=== PATIENT | female | born 1980 | race Caucasian/White ===

== ENCOUNTER 2018-02-14 21:04 | Emergency (ER) | payer MEDICAID ==
[~2018-02-14] VITALS: Ht 162.6 cm; Wt 99.8 kg
[2018-02-14 21:10] VITALS: BP_SYST 125
[2018-02-14 21:44] VITALS: BP_SYST 122
== END 2018-02-14 21:40 | disposition home or self-care (01) ==
LOC: SED 21:04
DX: N99.821 Postprocedural hemorrhage of a genitourinary system organ or structure following other procedure (principal); N39.0 Urinary tract infection, site not specified; Z90.710 Acquired absence of both cervix and uterus; Z91.041 Radiographic dye allergy status; Z88.2 Allergy status to sulfonamides; Z86.2 Personal history of diseases of the blood and blood-forming organs and certain disorders involving the immune mechanism
CPT/HCPCS: 99283

== ENCOUNTER 2018-06-24 19:53 | Emergency (ER) | payer MEDICAID, OTHER ==
[~2018-06-24] VITALS: Ht 162.6 cm; Wt 90.7 kg
[2018-06-24 20:08] VITALS: BP_SYST 163
--- NOTE | 2018-06-24 20:10 | NUR ---
Patient to ER bed 5 for evaluation.
--- NOTE | 2018-06-24 20:15 | NUR ---
Patient to ER via triage for evaluation of anxiety since 1700 today, patient is awake, alert and oriented in no acute distress, vital signs stable, respirations even and unlabored, skin warm and dry to touch. Family at bedside, patient denies pain/discomfort at present. Awaiting evaluation by ER MD, will continue to observe and assess.
[2018-06-24] MEDS ORDERED: RISP2TAB5 PO (20:18)
[2018-06-24] MEDS ORDERED: DIVA500T PO (20:19)
--- NOTE | 2018-06-24 20:20 | NUR ---
ER at bedside examining patient.
[2018-06-24] MEDS ORDERED: NACL 0.9% 1,000 ML IV ONE (20:30)
[2018-06-24] MEDS ORDERED: ONDANSETRON HCL 4 MG/2 ML VIAL IVP ONE (20:30)
[2018-06-24] MEDS ORDERED: LORazepam 2 MG/ML VIAL (FOR ER USE) IVP ONE (20:30)
--- NOTE | 2018-06-24 20:50 | NUR ---
Patient resting quietly in no acute distress, vital signs stable, respirations even and unlabored. IV fluids infusing without difficulty, patient up to bathroom to provide a urine sample which was obtained and sent to lab.
[2018-06-24 21:06] LABS: BASOPHILS # (AUTO) 0.1 K/uL (0.0-0.2); EOSINOPHILS # (AUTO) 0.1 K/uL (0.0-0.4); EOSINOPHILS % (AUTO) 1.5 % (0.0-4.0); HEMATOCRIT 38.3 % (36-48); HEMOGLOBIN 12.2 g/dL (12.0-16.0); LYMPHOCYTES # (AUTO) 1.8 K/uL (1.0-5.5); LYMPHOCYTES % (AUTO) 25.2 % (20.5-51.5); MEAN CORPUSCULAR HEMOGLOBIN 25 pg (27-31); MEAN CORPUSCULAR HGB CONC 32 % (32-36); MEAN CORPUSCULAR VOLUME 77 fL (79.0-98.0); MONOCYTES # (AUTO) 0.4 K/uL (0.0-1.0); NEUTROPHILS # (AUTO) 4.7 K/uL (1.8-7.7); NEUTROPHILS % (AUTO) 67.3 % (40.0-70.0); PLATELET COUNT (AUTO) 201 K/uL (130-430); RED CELL DISTRIBUTION WIDTH 16.9 % (9.0-15.0); WHITE BLOOD COUNT (AUTO) 7.1 K/uL (4.8-10.8)
[2018-06-24 21:12] LABS: CALCIUM 8.7 mg/dL (8.4-11.0); CREATININE 0.56 mg/dL (0.55-1.30); POTASSIUM 3.4 mmol/L (3.5-5.1)
[2018-06-24 21:13] LABS: BILIRUBIN,URINE NEGATIVE (NEGATIVE); BLOOD, URINE NEGATIVE (NEGATIVE); CLARITY/URINE SL HAZY (CLEAR); COLOR,URINE YELLOW (YELLOW); GLUCOSE,URINE NEGATIVE (NEGATIVE); KETONES,URINE TRACE (NEGATIVE); LEUKOCYTE ESTERASE ,URINE 1+ (NEGATIVE); NITRITE, URINE NEGATIVE (NEGATIVE); PH,URINE 6.5 (5.0-8.0); PROTEIN URINE NEGATIVE (NEGATIVE); UROBILINOGEN,URINE 0.2 (0.2-1.0)
[2018-06-24 21:17] LABS: ALBUMIN 3.4 g/dL (3.4-4.8); TOTAL BILIRUBIN 0.1 mg/dL (0.0-1.0)
[2018-06-24 21:28] LABS: BARBITURATE, URINE NEGATIVE (NEG <=200); BENZODIAZEPINE, URINE NEGATIVE (NEG <=150); CANNABINOID, URINE NEGATIVE (NEG <=50); COCAINE, URINE NEGATIVE (NEG <=150); METHAMPHETAMINES SCREEN,URINE NEGATIVE (NEG <=500); OPIATE, URINE NEGATIVE (NEG <=100); PHENCYCLIDINE SCREEN,URINE NEGATIVE (NEG <=25); UR TRICYCLIC ANTIDEPRESSANTS NEGATIVE (NEG <=300); URINE AMPHETAMINE NEGATIVE (NEG <=500); URINE METHADONE NEGATIVE (NEG <=200); URINE OXYCODONE SCREEN NEGATIVE (NEG <=100); URINE PROPOXYPHENE SCREEN NEGATIVE (NEG <=300)
[2018-06-24 21:29] LABS: BACTERIA,URINE FEW /HPF (None Seen); RBC,URINE 0-3 /HPF (0-3)
[2018-06-24 21:30] LABS: MUCUS,URINE None Seen /LPF (None Seen)
--- NOTE | 2018-06-24 21:45 | NUR ---
Patient resting quietly in no acute distress with family at bedside. Awaiting dispo
--- NOTE | 2018-06-24 22:45 | NUR ---
Patient resting quietly in no acute distress, vital signs stable, patient reports that she is feeling much better and would like to go home. Parents remain at bedside.
--- NOTE | 2018-06-24 23:00 | NUR ---
Patient reports that she is feeling better and would like to go home, Dr Pink notified of patient's requests.
--- NOTE | 2018-06-24 23:15 | NUR ---
María Elena wolff in [facility] - 06/25/18 at 0014 by [email or web address] Patient medicated as per MD montaño, awaiting discharge paperwork from Dr Pink.
[2018-06-24] MEDS ORDERED: cefTRIAXone 1 GM IVPB PREMIX 50 ML IV ONE (23:45)
--- NOTE | 2018-06-24 23:45 | NUR ---
Per Dr Pink, do not need to draw BC's or Lactic Acid before being given Rocephin IV. Patient has had urine culture sent.
--- NOTE | 2018-06-25 | NUR ---
Patient resting quietly in no acute distress, IV abx infusing without difficulty, no redness or swelling noted at site. Awaiting dispo, family remains at bedside.
[2018-06-25 00:45] VITALS: BP_SYST 105
--- NOTE | 2018-06-25 00:45 | NUR ---
Patient given written and verbal discharge instructions and verbalizes understanding. ER MD discussed with patient the results and treatment provided. Patient in stable condition. ID arm band removed. IV catheter removed intact and dressing applied, no active bleeding. Rx of Ativan, Keflex given. Patient educated on pain management and to follow up with PMD. Pain Scale 0. Opportunity for questions provided and answered. Medication side effect fact sheet provided. Patient left ER in no acute distress, ambulating with slow, steady gait with family at her side. No adverse reaction noted to medication.
== END 2018-06-25 00:45 | disposition home or self-care (01) ==
LOC: SED 19:53
DX: F41.0 Panic disorder [episodic paroxysmal anxiety] (principal); N39.0 Urinary tract infection, site not specified; Z86.2 Personal history of diseases of the blood and blood-forming organs and certain disorders involving the immune mechanism; Z90.710 Acquired absence of both cervix and uterus; Z88.2 Allergy status to sulfonamides; Z91.041 Radiographic dye allergy status
CPT/HCPCS: 36415; 80053; 80307; 81000; 81025; 85025; 87086; 93005; 96365; 96375; 99284; J0696; J2060; J2405; J7030

== ENCOUNTER 2020-05-05 17:32 | Emergency (ER) | payer OTHER ==
[~2020-05-05] VITALS: Ht 165.1 cm; Wt 102.1 kg
[~2020-05-05 17:32] MED LIST: DIVA500T PO; RISP2TAB5 PO
[2020-05-05 17:53] VITALS: BP_SYST 127
[2020-05-05 20:00] VITALS: BP_SYST 127
== END 2020-05-05 20:00 | disposition home or self-care (01) ==
LOC: SED 17:32
DX: M79.89 Other specified soft tissue disorders (principal); Z88.2 Allergy status to sulfonamides; Z91.041 Radiographic dye allergy status; Z79.899 Other long term (current) drug therapy
CPT/HCPCS: 93970; 99284

== ENCOUNTER 2020-11-10 17:35 | Emergency (ER) | payer BC ==
[~2020-11-10] VITALS: Ht 165.1 cm; Wt 100.7 kg
[2020-11-10 17:35] VITALS: BP_SYST 160
[2020-11-10] MEDS ORDERED: SUMAtriptan SUCCINATE 6 MG/0.5 ML VIAL SUBCUT ONE (18:30)
[2020-11-10 19:02] VITALS: BP_SYST 158
== END 2020-11-10 19:02 | disposition home or self-care (01) ==
LOC: SED 17:35
DX: G43.909 Migraine, unspecified, not intractable, without status migrainosus (principal); Z88.2 Allergy status to sulfonamides; Z91.041 Radiographic dye allergy status; Z79.899 Other long term (current) drug therapy
CPT/HCPCS: 96372; 99283; J3030

== ENCOUNTER 2020-12-15 14:21 | Emergency (ER) | payer OTHER, BC ==
[~2020-12-15] VITALS: Ht 165.1 cm; Wt 103.4 kg
[2020-12-15 14:35] VITALS: BP_SYST 126
[2020-12-15 15:19] LABS: BASOPHILS # (AUTO) 0.1 K/uL (0.0-0.2); BASOPHILS % (AUTO) 0.9 % (0.0-2.0); EOSINOPHILS # (AUTO) 0.2 K/uL (0.0-0.4); EOSINOPHILS % (AUTO) 3.7 % (0.0-4.0); HEMATOCRIT 40.2 % (36-48); HEMOGLOBIN 13.3 g/dL (12.0-16.0); LYMPHOCYTES # (AUTO) 1.7 K/uL (1.0-5.5); LYMPHOCYTES % (AUTO) 28.5 % (20.5-51.5); MEAN CORPUSCULAR HEMOGLOBIN 29 pg (27-31); MEAN CORPUSCULAR HGB CONC 33 % (32-36); MEAN CORPUSCULAR VOLUME 87 fL (79.0-98.0); MONOCYTES # (AUTO) 0.4 K/uL (0.0-1.0); MONOCYTES % (AUTO) 6.9 % (1.7-9.3); NEUTROPHILS # (AUTO) 3.7 K/uL (1.8-7.7); PLATELET COUNT (AUTO) 169 K/uL (130-430); RED BLOOD CELL COUNT(AUTO) 4.62 MIL/uL (4.2-6.2); RED CELL DISTRIBUTION WIDTH 14.2 % (9.0-15.0); WHITE BLOOD COUNT (AUTO) 6.1 K/uL (4.8-10.8)
[2020-12-15 15:25] LABS: CREATININE 0.82 mg/dL (0.55-1.30); POTASSIUM 3.9 mmol/L (3.5-5.1)
[2020-12-15 15:29] LABS: PROTHROMBIN TIME 10.1 SECS (9.5-12.5)
[2020-12-15 15:31] LABS: ALBUMIN 3.5 g/dL (3.4-4.8); TOTAL BILIRUBIN 0.3 mg/dL (0.0-1.0)
[2020-12-15 15:49] LABS: CALCIUM 8.9 mg/dL (8.4-11.0)
[2020-12-15 17:00] VITALS: BP_SYST 128
== END 2020-12-15 17:00 | disposition home or self-care (01) ==
LOC: SED 14:21
DX: R60.0 Localized edema (principal); Z88.2 Allergy status to sulfonamides; Z91.041 Radiographic dye allergy status; Z79.899 Other long term (current) drug therapy
CPT/HCPCS: 36415; 71045; 80053; 83880; 84484; 85025; 85610-TC; 85730-TC; 93005; 93971; 99285

== ENCOUNTER 2021-04-11 15:06 | Emergency (ER) | payer BC, MEDICAID ==
[~2021-04-11] VITALS: Ht 162.6 cm; Wt 86.2 kg
[2021-04-11 15:17] VITALS: BP_SYST 106
--- NOTE | 2021-04-11 15:25 | NUR ---
Pt brought in by mother for anxiety. Per pt she has been having anxiety x2 weeks and today it was worse. Pt states she was "manic and confused today going in a spiral". She has history of depression and bipolar. Pt appears hyper and anxious and denies SI. She is alert and oriented x4 and all VSS.
[2021-04-11] MEDS ORDERED: LORazepam 2 MG/ML VIAL IM ONE (15:30)
--- NOTE | 2021-04-11 15:31 | NUR ---
ER at bedside examining patient.
--- NOTE | 2021-04-11 15:45 | NUR ---
IM Ativan given per md order.
--- NOTE | 2021-04-11 16:04 | NUR ---
Pt resting in bed. Pt states she feels "much better" and is no longer anxious.
[2021-04-11 16:27] VITALS: BP_SYST 106
--- NOTE | 2021-04-11 16:28 | NUR ---
Patient given written and verbal discharge instructions and verbalizes understanding. ER MD discussed with patient the results and treatment provided. Patient in stable condition. ID arm band removed. Patient educated on pain management and to follow up with PMD. Pain Scale 0/10. Opportunity for questions provided and answered. Medication side effect fact sheet provided.
== END 2021-04-11 16:28 | disposition home or self-care (01) ==
LOC: SED 15:06
DX: F41.9 Anxiety disorder, unspecified (principal); F31.9 Bipolar disorder, unspecified; Z88.2 Allergy status to sulfonamides; Z91.041 Radiographic dye allergy status; Z79.899 Other long term (current) drug therapy
CPT/HCPCS: 96372; 99283; J2060

== ENCOUNTER 2021-06-06 07:02 | Emergency (ER) | payer MEDICARE, MEDICAID ==
[~2021-06-06] VITALS: Ht 165.1 cm; Wt 111.1 kg
[2021-06-06 07:02] VITALS: BP_SYST 130
--- NOTE | 2021-06-06 07:02 | NUR ---
Pt to bed 7 for examination.
--- NOTE | 2021-06-06 07:10 | NUR ---
Pt AAO and ambulatory reporting right knee pain x 2 days. Pt denies any acute injury or trauma. Pt reports difficulty ambulating and rates pain 7/10 pain scale.
--- NOTE | 2021-06-06 07:10 | NUR ---
Dr. Cole at bedside to assess.
--- NOTE | 2021-06-06 07:55 | NUR ---
Pt X-ray complete.
--- NOTE | 2021-06-06 08:10 | NUR ---
Knee immobilizer applied to right lower extremity.
[2021-06-06 08:15] VITALS: BP_SYST 130
--- NOTE | 2021-06-06 08:15 | NUR ---
Patient given written and verbal discharge instructions and verbalizes understanding. Dr. Kelsey GREENE MD discussed with patient the results and treatment provided. Patient in stable condition. ID arm band removed. Rx of ibuprofen. Patient educated on pain management and to follow up with PMD. Pain Scale 0/10. Opportunity for questions provided and answered. Medication side effect fact sheet provided.
== END 2021-06-06 08:15 | disposition home or self-care (01) ==
LOC: SED 07:02
DX: S83.91XA Sprain of unspecified site of right knee, initial encounter (principal); Z88.2 Allergy status to sulfonamides; Z91.041 Radiographic dye allergy status; Z79.899 Other long term (current) drug therapy; X50.3XXA Overexertion from repetitive movements, initial encounter; Y93.89 Activity, other specified; Y92.89 Other specified places as the place of occurrence of the external cause; Y99.8 Other external cause status
CPT/HCPCS: 73564; 99283